=== PATIENT | female | born 1995 | race Caucasian/White ===

== ENCOUNTER 2021-04-28 12:43 | Emergency (ER) | payer OTHER ==
[~2021-04-28 12:43] MED LIST: IBUPROFEN600 MG PO; NORCO 5-325 TA1 EACH PO; PEPCID20 MG PO; PRENATAL VITAM1 EAC5 PO
[2021-04-28 13:59] LABS: HEMOGLOBIN 15.2 gm/dl (12.3-15.3); RED BLOOD COUNT 4.88 M/UL (4.00-5.10); WHITE BLOOD COUNT 7.2 K/UL (4.5-11.0)
[2021-04-28 14:35] LABS: BUN/CREATININE RATIO 11 (0-10)
[2021-04-28] MEDS ORDERED: ZOFRAN ODT 4 MG4 MG PO (16:39)
== END 2021-04-28 17:41 | disposition home or self-care (01) ==
LOC: ER1 12:43
PROVIDERS: Family Medicine
DX: R10.11 Right upper quadrant pain (principal); R11.0 Nausea; R19.7 Diarrhea, unspecified; Z90.49 Acquired absence of other specified parts of digestive tract; F17.290 Nicotine dependence, other tobacco product, uncomplicated; Z20.822 Contact with and (suspected) exposure to COVID-19
CPT/HCPCS: 0240U; 80053; 81001; 83690; 84703; 85025; 96374; 99284; J2405; J7030